=== PATIENT | female | born 1960 | race African-American/Black ===

== ENCOUNTER 2023-03-26 14:29 | Outpatient (OUT) | payer OTHER, SELFPAY ==
--- NOTE | 2023-03-26 14:38 | MM_ITS ---
Patient: ROBERT EPPS Exam Date: 03/26/2023 : 1960 Gender:F Ordering : DR Waldo Munroe . Admission #: [id number] Family : DR VIANEY MARSHALL Order #: [id number] CLICK HERE TO VIEW EXAM RADIOLOGY REPORT PROCEDURE: MM TOMOSYNTHESIS SCREENING BI COMPARISON: MG MAMM SCREEN 3D ELENA CAD, 01/24/2021. MG MAMM SCREEN 3D ELENA CAD, 01/30/2022. INDICATIONS: Screening Calculator Name NCI Breast Cancer Risk Assessment Tool 5 Year Breast Cancer Risk 1.50% Lifetime Breast Cancer Risk 6.70% Personal Breast Cancer No Personal Ovarian Cancer No Treatments None Family Cancers Grandmother-maternal with leukemia cancer at age 73. LOCATION: [facility] BREAST COMPOSITION: Heterogeneously dense,which may obscure small masses. FINDINGS: DIAGNOSTIC CATEGORY 2--BENIGN FINDING. NO CHANGE FROM COMPARISON. Scattered benign-appearing calcifications are present. Scattered benign-appearing lymph nodes are present. Scattered benign-appearing nodules are present. RIGHT BREAST: No significant suspicious finding. LEFT BREAST: No significant suspicious finding. Stable area of lobular focal asymmetry upper inner quadrant with scattered calcifications. 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 RECOMMENDATIONS: ROUTINE MAMMOGRAM AND CLINICAL EVALUATION IN 12 MONTHS. PLEASE NOTE: A NORMAL MAMMOGRAM DOES NOT EXCLUDE THE POSSIBILITY OF BREAST CANCER. A CLINICALLY SUSPICIOUS PALPABLE LUMP SHOULD BE BIOPSIED. Dictated by: Brent Vallecillo MD on 03/27/2023 at 08:16 Approved by: Brent Vallecillo MD on 03/27/2023 at 08:19
== END 2023-03-26 14:30 | disposition home or self-care (01) ==
LOC: MAMMO 14:33
PROVIDERS: PCP Family Medicine; Visit Provider Obstetrics & Gynecology
DX: Z12.31 Encounter for screening mammogram for malignant neoplasm of breast (principal); Z01.419 Encounter for gynecological examination (general) (routine) without abnormal findings; Z80.6 Family history of leukemia
CPT/HCPCS: 77063; 77067; 87624; G0145

== ENCOUNTER 2023-03-26 19:16 | Outpatient (REF) | payer OTHER, SELFPAY ==
[2023-03-31 16:11] LABS: Age Gdln ACOG Testing Note (.); HPV Aptima Negative (Negative); IGP, Aptima HPV, rfx 16/18,45 Note (.)
== END 2023-03-26 19:17 | disposition home or self-care (01) ==
LOC: LAB 19:16
PROVIDERS: PCP Family Medicine; Visit Provider Obstetrics & Gynecology
DX: Z01.419 Encounter for gynecological examination (general) (routine) without abnormal findings (principal)
CPT/HCPCS: 87624; G0145

== ENCOUNTER 2024-01-27 09:38 | Outpatient (OUT) | payer OTHER, SELFPAY ==
--- NOTE | 2024-01-27 09:46 | XR_ITS ---
[address] [address] Patient Name: ROBERT EPPS MRN: [id number] date: 1960 Sex: F Assigned Patient Location: [facility] Current Patient Location: [facility] Accession/Order Number: [id number] Exam Date: 01/27/2024 10:10 Report Date: 01/27/2024 12:19 At the request of: ADRIANA BARAJAS Procedure: XR DEXA axial skeleton EXAMINATION: XR DEXA axial skeleton HISTORY: Postmenopausal Status COMPARISON: No relevant comparison available. TECHNIQUE: Dual-energy X-ray absorptiometry (DXA) was performed. FINDINGS: SPINE ANALYSIS: Average bone mineral density is 1.005 g/cm2. T-score (standard deviation relative to young adult mean): -1.6 . HIP ANALYSIS: Lowest bone mineral density is within the right femoral neck, 0.790 g/cm2. T-score (standard deviation relative to young adult mean): -1.8 . XR/XR DEXA axial skeleton IMPRESSION: World Health Organization Classification: Osteopenia - Moderate Fracture Risk FRAX: Cannot calculate. Pharmacologic treatment recommendations * No uniform recommendation applies to all patients. Management plans must be individualized. * Consider initiating pharmacologic treatment in postmenopausal women and men >= 50 years of age who have the following: Primary fracture prevention: * T-score <= - 2.5 at the femoral neck, total hip, lumbar spine, 33% radius (some uncertainty with existing data) by DXA. * Low bone mass (osteopenia: T-score between - 1.0 and - 2.5) at the femoral neck or total hip by DXA with a 10-year hip fracture risk >= 3% or a 10-year major osteoporosis-related fracture risk >= 20% (i.e., clinical vertebral, hip, forearm, or proximal humerus) based on the [place]-adapted FRAXregistered model. Secondary fracture prevention: * Fracture of the hip or vertebra regardless of BMD [4, 5]. * Fracture of proximal humerus, pelvis, or distal forearm in persons with low bone mass (osteopenia: T-score between - 1.0 and - 2.5). The decision to treat should be individualized in persons with a fracture of the proximal humerus, pelvis, or distal forearm who do not have osteopenia or low BMD [12, 13]. Jaime MS, Katya SL, Chandler KL, Rohan EM, Axel KG, AJ, Antonino ES. The clinician's guide to prevention and treatment of osteoporosis. Osteoporos Int. 2021;33(10):9088-3882. doi: 10.1007/z08317-850-42322-t. Epub 2021Oct 03. Erratum in: Osteoporos Int. 2021Jan 02;: PMID: [id number]; PMCID: [id number]. Electronically authenticated by: LUDA MARQUEZ Date: 01/27/2024 12:19
--- OUTSIDE RECORDS SUMMARY | 2024-01-27 10:04 | XMS_ITS | CCD ---
Author Organization [facility] Care Team Providers Care Brand Director Name Role Phone DR VIANEY MARSHALL Primary Care Unavailable DR RAS SCHROEDER Consulting Unavailable JENN, DR WRIGHT Attending Unavailable DR ADRIANA BARAJAS Admitting Unavailable DR VIANEY MARSHALL Consulting Unavailable MD Debbi Kaur Primary Care Provider FARA Wills Attending Provider Marcela Wills Attending Unavailable Marcela Wills Admitting Unavailable Debbi Kaur Primary Care Unavailable VIANEY MARSHALL Referring Unavailable VIANEY MARSHALL Primary Care Unavailable VIANEY MARSHALL Referring Unavailable VIANEY MARSHALL Primary Care Unavailable Problems Problem Classification Problem Date Documented Da te Episodic/Chronic Other nutritional; endocrine; and metabolic disorders (1 source) Abnormal weight loss; Translations: [Abnormal weight loss] Onset: 01-12-2024 Episodic Other screening for suspected conditions (not mental disorders or infectious disease) (4 sources) Encounter for screening mammogram for malignant neoplasm of breast; Translations: [ENC SCR MAMMO MALIG NEOPLASM BREAST] Onset: 01-30-2022 Episodic Other skin disorders (1 source) Nonscarring hair loss, unspecified; Translations: [Nonscarring hair loss, unspecified] Onset: 01-12-2024 Episodic Residual codes; unclassified (1 source) Family history of leukemia; Translations: [FAMILY HISTORY OF LEUKEMIA] Onset: 01-31-2022 Episodic Thyroid disorders (1 source) Iodine-deficiency related diffuse (endemic) goiter; Translations: [Iodine-deficiency related diffuse (endemic) goiter] Onset: 01-12-2024 Chronic Unclassified (1 source) Pain in right knee; Translations: [Pain in right knee] Onset: 01-09-2023 Results Test Name Value Interpretation Reference Range Facil ity US THYROIDon 01-14-2024 US THYROID US THYROID US THYROID: 01/13/2024 PROVIDED HISTORY: * 63 years old Female * Iodine-deficiency related diffuse (endemic) goiter COMPARISON: Ultrasound soft tissue head and neck 07/03/2014 TECHNIQUE: Real time sonographic evaluation of the thyroid gland performed. FINDINGS: Thyroid size: Normal Right thyroid lobe measures: 5.7 x 2.6 x 2.8 cm Left thyroid lobe measures: 5.8 x 2.1 x 1.8 cm Isthmus measures: 0.8 cm Overall thyroid texture: Heterogenous TR3 nodule in the mid right thyroid lobe measuring up to 1.7 cm. TR4 nodule in the inferior right thyroid lobe measuring up to 2.9 cm. Scattered additional subcentimeter thyroid nodules, favoring benign etiology, and requiring no further imaging follow-up per ACR TI-RADS criteria. IMPRESSION: 1. TR4 nodule in the right thyroid lobe measuring up to 2.9 cm, for which FNA is recommended. 2. TR3 nodule in the right thyroid lobe measuring up to 1.7 cm, for which one-year sonographic follow-up is recommended. 3. Nonspecific heterogeneity of the thyroid gland. Correlation with serology and patient history, may be of diagnostic value. ACR TI-RADS recommendations: * TR5 (greater than or equal to 7 points): FNA if greater than or equal to 1cm, follow-up if 0.5 - 0.9 cm every year for 5 years * TR4 (4-6 points): FNA if greater than or equal to 1.5cm, follow-up if 1 - 1.4 cm in 1, 2, 3 and 5 years * TR3 (3 points): FNA if greater than or equal to 2.5cm, follow-up if 1.5 - 2.4 cm in 1, 3 and 5 years * TR2 (2 points) & TR1 (0 points): No FNA or imaging follow-up Ventura FN, Analilia WD, Colin EG, et al. ACR Thyroid Imaging, Reporting and Data System (TI-RADS): White Paper of the ACR TI-RADS Committee. J Am Nolan Radiol 2017;14:587-595. Finalized by Josey Sánchez MD on 01/14/2024 10:59 PM Normal [facility] CBC AND AUTO DIFFon 01-12-20 24 ABSOLUTE BASOPHIL 0.0 X10E9/L Normal 0.0-0.2 [facility] Comment on above: Performed By: #### C BCA, CMP, 64724-5, THYR #### [facility] ([id number]) [address], [address] [place] [address] ABSOLUTE NEUTROPHIL 5.0 X10E9/L Normal 1.5-6.6 [facility] Comment on above: Performed By: #### C HERNANDEZ, CMP, 58546-6, THYR #### [facility] ([id number]) [address], [address] [place] [address] Basophils/100 WBC (Bld) 0.5 % Normal [facility] Comment on above: Performed By: #### Matthias BCA, CMP, 07851-6, THYR #### [facility] ([id number]) [address], [address] [place] [address] Eosinophils (Bld) [#/Vol] 0.1 10*3/uL Normal 0.0-0.4 [facility] Comment on above: Performed By: #### Matthias BCA, CMP, 29122-7, THYR #### [facility] ([id number]) [address], [address] [place] [address] Eosinophils/100 WBC (Bld) 1.0 % Normal [facility] Comment on above: Performed By: #### C BCA, CMP, 51775-9, THYR #### [facility] ([id number]) [address], [address] [place] [address] Erythrocyte distribution width (RBC) [Ratio] 15.1 % High 11.5-15.0 [facility] Comment on above: Performed By: #### Matthias BCA, CMP, 62881-8, THYR #### [facility] ([id number]) [address], [address] [place] [address] Hematocrit (Bld) [Volume fraction] 42.3 % Normal 35-47 [facility] Comment on above: Performed By: #### C BCA, CMP, 62218-5, THYR #### [facility] ([id number]) [address], [facility] [address] [place] [address] Hemoglobin (Bld) [Mass/Vol] 13.8 g/dL Normal 11.7-15.5 [facility] Comment on above: Performed By: #### C BCA, CMP, 24449-1, THYR #### [facility] ([id number]) [address], [facility] [address] [place] [address] Lymphocytes (Bld) [#/Vol] 2.1 10*3/uL Normal 1.0-3.5 [facility] Comment on above: Performed By: #### C BCA, CMP, 53430-9, THYR #### [facility] ([id number]) [address], [facility] [address] [place] [address] Lymphocytes/100 WBC (Bld) 27.6 % Normal [facility] Comment on above: Performed By: #### C BCA, CMP, 10641-3, THYR #### [facility] ([id number]) [address], [facility] [address] [place] [address] MCH (RBC) [Entitic mass] 26.1 pg Low 27-34 [facility] Comment on above: Performed By: #### C BCA, CMP, 98574-0, THYR #### [facility] ([id number]) [address], [address] [place] [address] MCHC (RBC) [Mass/Vol] 32.6 g/dL Normal 32-36 [facility] Comment on above: Performed By: #### C BCA, CMP, 57327-3, THYR #### [facility] ([id number]) [address], [address] [place] [address] MCV (RBC) [Entitic vol] 80 fL Normal 80-100 [facility] Comment on above: Performed By: #### C BCA, CMP, 71051-9, THYR #### [facility] ([id number]) [address], [address] [place] [address] Monocytes (Bld) [#/Vol] 0.4 10*3/uL Normal 0-0.9 [facility] Comment on above: Performed By: #### C HERNANDEZ, CMP, 97993-6, THYR #### [facility] ([id number]) [address], [address] [place] [address] Monocytes/100 WBC (Bld) 5.3 % Normal [facility] Comment on above: Performed By: #### Matthias BCA, CMP, 18262-9, THYR #### [facility] ([id number]) [address], [address] [place] [address] Neutrophils/100 WBC (Bld) 65.6 % Normal [facility] Comment on above: Performed By: #### Matthias BCA, CMP, 77199-6, THYR #### [facility] ([id number]) [address], [address] [place] [address] Platelet mean volume (Bld) [Entitic vol] 9.9 fL Normal 7-12 [facility] Comment on above: Performed By: #### C BCA, CMP, 62872-3, THYR #### [facility] ([id number]) [address], [address] [place] [address] Platelets (Bld) [#/Vol] 232 10*3/uL Normal 150-450 [facility] Comment on above: Performed By: #### C BCA, CMP, 29092-3, THYR #### [facility] ([id number]) [address], [address] [place] [address] RBC COUNT 5.28 X10E12/L High 3.80-5.20 [facility] Comment on above: Performed By: #### C BCA, CMP, 47216-3, THYR #### [facility] ([id number]) [address], [address] [place] [address] WBC (Bld) [#/Vol] 7.5 10*3/uL Normal 4.0-11.0 [facility] Comment on above: Performed By: #### C BCA, CMP, 49602-4, THYR #### [facility] ([id number]) [address], [address] [place] [address] COMPREHENSIVE METABOLIC PANE Gal 01-12-2024 Albumin [Mass/Vol] 4.6 g/dL Normal 3.2-5.3 [facility] Comment on above: Performed By: #### C BCA, CMP, 07648-5, THYR #### [facility] ([id number]) [address], [address] [place] [address] ALP [Catalytic activity/Vol] 97 U/L Normal 39-130 [facility] Comment on above: Performed By: #### C BCA, CMP, 75151-2, THYR #### [facility] ([id number]) [address], [address] [place] [address] ALT [Catalytic activity/Vol] 17 U/L Normal 0-31 [facility] Comment on above: Performed By: #### C BCA, CMP, 16517-2, THYR #### [facility] ([id number]) [address], [address] [place] [address] Anion gap [Moles/Vol] 11 mmol/L Normal 5-15 [facility] Comment on above: Performed By: #### C BCA, CMP, 63368-4, THYR #### [facility] ([id number]) [address], [address] [place] [address] AST [Catalytic activity/Vol] 18 U/L Normal 0-41 [facility] Comment on above: Performed By: #### C BCA, CMP, 61297-7, THYR #### [facility] ([id number]) [address], [address] [place] [address] Bilirubin [Mass/Vol] 0.8 mg/dL Normal 0.3-1.2 [facility] Comment on above: Performed By: #### C BCA, CMP, 21854-0, THYR #### [facility] ([id number]) [address], [address] [place] [address] Calcium [Mass/Vol] 10.0 mg/dL Normal 8.5-10.5 [facility] Comment on above: Performed By: #### C BCA, CMP, 14773-8, THYR #### [facility] ([id number]) [address], [address] [place] [address] Chloride [Moles/Vol] 105 mmol/L Normal 98-109 [facility] Comment on above: Performed By: #### C BCA, CMP, 30979-3, THYR #### [facility] ([id number]) [address], [address] [place] [address] CO2 [Moles/Vol] 25 mmol/L Normal 22-32 [facility] Comment on above: Performed By: #### C BCA, CMP, 53584-1, THYR #### [facility] ([id number]) [address], [address] [place] [address] Creatinine [Mass/Vol] 0.96 mg/dL Normal 0.40-1.00 [facility] Comment on above: Result Comment: METH OD TRACEABLE TO IDMS STANDARD Performed By: #### C BCA, CMP, 54547-1, THYR #### [facility] ([id number]) [address], [address] [place] [address] GFR/1.73 sq M.predicted among non-blacks MDRD (S/P/Bld) [Vol rate/Area] 67 mL/min/{1.73_m2} Normal >59 [facility] Comment on above: Result Comment: Reported eGFR is based on the CKD-EPI 2020 equation that does not use a race coefficient. Performed By: #### C ROCIO NG, 04104-6, THYR #### [facility] ([id number]) [address], [address] [place] [address] Glucose [Mass/Vol] 85 mg/dL Normal 65-99 [facility] Comment on above: Performed By: #### C ROCIO NG, 02265-5, THYR #### [facility] ([id number]) [address] [address] [place] [address] Potassium [Moles/Vol] 4.0 mmol/L Normal 3.5-5.0 [facility] Comment on above: Performed By: #### C ROCIO NG, 27056-2, THYR #### [facility] ([id number]) [address], [address] [place] [address] Protein [Mass/Vol] 7.2 g/dL Normal 6.0-8.0 [facility] Comment on above: Performed By: #### C ROCIO NG, 17306-5, THYR #### [facility] ([id number]) [address], [address] [place] [address] Sodium [Moles/Vol] 141 mmol/L Normal 134-146 [facility] Comment on above: Performed By: #### C ROCIO NG, 63634-1, THYR #### [facility] ([id number]) [address], [address] [place] [address] Urea nitrogen [Mass/Vol] 17 mg/dL Normal 5-27 [facility] Comment on above: Performed By: #### Matthias NG, ROCIO, 68062-1, THYR #### [facility] ([id number]) [address], [address] [place] [address] Lipid 1996 panelon 4 Cholesterol [Mass/Vol] 257 mg/dL High 150-200 [facility] Comment on above: Performed By: #### Matthias NG, CMP, 83254-8, THYR #### [facility] ([id number]) [address], [address] [place] [address] Cholesterol in HDL [Mass/Vol] 64 mg/dL Normal >39 [facility] Comment on above: Result Comment: HDL <40 mg/dL - High Risk HDL > or = 40mg/dL- Desirable HDL >60 mg/dL - Negative Risk Performed By: #### Matthias NG, ROCIO, 94175-3, THYR #### [facility] ([id number]) [address], [address] [place] [address] Cholesterol in LDL [Mass/Vol] 169 mg/dL High <130 [facility] Comment on above: Result Comment: LDL <100 mg/dL - Desirable LDL >160 mg/dL - High Risk Performed By: #### Matthias NG, CMP, 85724-8, THYR #### [facility] ([id number]) [address], [address] [place] [address] Cholesterol in VLDL [Mass/Vol] 24 mg/dL Normal 0-30 [facility] Comment on above: Performed By: #### Matthias NG, CMP, 12774-5, THYR #### [facility] ([id number]) [address], [address] [place] [address] CHOLESTEROL:HDL 4.0 Normal 1.0-5.0 [facility] Comment on above: Performed By: #### C HERNANDEZ, CMP, 09129-4, THYR #### [facility] ([id number]) [address], [address] [place] [address] Triglyceride [Mass/Vol] 118 mg/dL Normal 27-150 [facility] Comment on above: Performed By: #### C HERNANDEZ, CMP, 62876-7, THYR #### [facility] ([id number]) [address], [address] [place] [address] THYROID PROFILEon 01-12-2024 Free T4 [Mass/Vol] 0.79 ng/dL Normal 0.61-1.60 [facility] Comment on above: Performed By: #### C HERNANDEZ, CMP, 61305-1, THYR #### [facility] ([id number]) [address], [address] [place] [address] TSH 0.87 uIU/mL Normal 0.49-4.67 [facility] Comment on above: Performed By: #### C BCA, CMP, 06174-2, THYR #### [facility] ([id number]) [address], [address] [place] [address] XR knee RT 4V*on 01-09-2023 XR knee RT 4V* [facility] Main [address] [address] XRay Report Signed Patient: Robert Epps MR#: [id number] : 1960 Acct:[id number] Age/Sex: 62 / F ADM Date: 01/09/23 Loc: XDUC Room: Type: [facility] Attending Dr: Marcela CHAUDHARI Copies to: FARA Montero Ordering Provider: FARA Montero Date of Service: 01/09/23 XR/XR knee RT 4V*: RIGHT KNEE PAIN 4 views right knee plain film COMPARISON: None HISTORY: Right knee pain 1 month ago. ACUTE FINDINGS: None DEGENERATIVE CHANGE: Unremarkable SOFT TISSUE FINDINGS: Unremarkable JOINT EFFUSION: None POSTOP CHANGES: None BONE MINERALIZATION: Adequate XR/XR knee RT 4V* IMPRESSION: No acute findings Impression dictated by: Tyler Pugh M.D.01/09/2023 4:56 PM Dictation Location: [place] [address] Transcribed By: [facility] 01/09/231655 Dictated By: Tyler Pugh DO 01/09/231654 Signed By: 01/09/231655 [facility] MG MAMM SCREEN 3D ELENA CADon 01-30-2022 MG MAMM SCREEN 3D ELENA CAD Patient: ROBERT EPPS Exam Date: 01/30/2022 : 1960 Gender:F Ordering : DR VIANEY MARSHALL Admission #: [id number] Family : DR ADRIANA BARAJAS . Order #: [id number] CLICK HERE TO VIEW EXAM RADIOLOGY REPORT PROCEDURE: MAMMOGRAM SCREENING 3D BILATERAL CAD COMPARISON: MG MAMM SCREEN ELENA W CAD, 01/04/2020. MG MAMM SCREEN ELENA W CAD, 12/21/2018. DIGITIZED_MAMMO, 12/30/2008. MG MAMM SCREEN 3D ELENA CAD, 01/24/2021. INDICATIONS: Screening mammography Calculator Name NCI Breast Cancer Risk Assessment Tool 5 Year Breast Cancer Risk 1.40% Lifetime Breast Cancer Risk 6.90% Personal Breast Cancer No Personal Ovarian Cancer No Treatments None Family Cancers Grandmother-maternal with leukemia cancer at age 73. LOCATION: [facility] BREAST COMPOSITION: Heterogeneously dense,which may obscure small masses. FINDINGS: DIAGNOSTIC CATEGORY 2--BENIGN FINDING: RIGHT BREAST: No significant suspicious finding. Scattered benign-appearing nodules are present. No significant change has occurred. LEFT BREAST: No significant suspicious finding. Scattered benign-appearing nodules are present. Scattered benign-appearing calcifications are present. No significant change has occurred. RECOMMENDATIONS: ROUTINE MAMMOGRAM AND CLINICAL EVALUATION IN 12 MONTHS. PLEASE NOTE: A NORMAL MAMMOGRAM DOES NOT EXCLUDE THE POSSIBILITY OF BREAST CANCER. A CLINICALLY SUSPICIOUS PALPABLE LUMP SHOULD BE BIOPSIED. Dictated by: Ras Schroeder M.D. on 01/31/2022 at 13:51 Approved by: Ras Schroeder M.D. on 01/31/2022 at 13:59 Normal [facility] Encounters Encounter Date Encounter Type Care Provider Facility Start: 01-13-2024 End: 01-13-2024 ambulatory VIANEY A. [facility] Start: 01-12-2024 End: 01-12-2024 ambulatory VIANEY A. [facility] Start: 01-12-2024 Encounter for genera l adult medical examination without abnormal findings [facility] Start: 01-09-2023 End: 01-09-2023 ambulatory Marcela Elma Facility:[facility] Start: 01-09-2023 End: 01-09-2023 ambulatory MD Debbi Kaur Work Phone: [facility] Work Phone: Start: 01-09-2023 End: 01-09-2023 Patient encounter procedure MD Debbi Kaur Work Phone: [facility] Work Phone: Start: 01-30-2022 End: 01-31-[address] VIANEY MARSHALL Facility:[facility] Procedures Date Procedure Procedure Detail Performing Clinician Start: 01-09-2023 X-ray of right knee MD Debbi Kaur Work Phone: Payers Date Payer Category Payer Self-pay 2022 Unknown [id number] 1960 Unknown [id number] [id number] [id number] 1960 Unknown [id number] 2.16.8 [id number] 1960 Unknown [id number] 2.16.8 [id number] 1958 Unknown [id number] Unknown [id number] 2.16.8 [id number] Social History Date Type Detail Facility Tobacco smoking stat us IDIS Unknown if ever smoked [facility] Work Phone: Start: 1960 Sex Assigned At Female F [facility] Evaluation note Note Date & Type Note Facility Evaluation note No assessment information availa ble [facility] Work Phone: Summary Purpose Family History No Family History Records FoundNo Family History Records FoundNo Family History Records Found Advance Directives No Advanced Directives Records FoundNo Advanced Directives Records FoundNo Advanced Directives Records Found Additional Source Comments INFORMATION SOURCE (unrecogn ized section and content) DATE CREATED AUTHOR 02/01/2022 [facility] DATE CREATED AUTHOR AUTHOR'S ORGANIZ ATION 01/21/2023 [facility] DATE CREATED AUTHOR AUTHOR'S ORGANIZ ATION 01/17/2024 [facility] Care Teams (unrecognized sec tion and content) Team Status: Active Member Role Status Dates Debbi Kaur MD Primary Care Provider Active Team Status: Inactive Member Role Status Dates Debbi Kaur MD Primary Care Provider Active FARA Amin Attending Provider Active Goals (unrecognized section and content) Goals may be documented in a n alternate section FOR RECORDS PERTAINING TO PATIENTS WHO ARE OR HAVE BEEN ENROLLED IN A CHEMICAL DEPENDENCY/SUBSTANCEABUSE PROGRAM, SOME INFORMATION MAY BE OMITTED. This clinical summary was aggregated from multiple sources. Caution should be exercised in using it in the provision of clinical care. This summary normalizes information from multiple sources, and as a consequence, information in this document may materially change the coding, format and clinical context of patient data. In addition, data may be omitted in some cases. CLINICAL DECISIONS SHOULD BE BASED ON THE PRIMARY CLINICAL RECORDS. [employer] provides no warranty or guarantee of the accuracy or completeness of information in this document.
== END 2024-01-27 09:39 | disposition home or self-care (01) ==
LOC: RAD 09:39
PROVIDERS: PCP Family Medicine; Visit Provider Obstetrics & Gynecology
DX: M85.80 Other specified disorders of bone density and structure, unspecified site (principal); Z78.0 Asymptomatic menopausal state
CPT/HCPCS: 77080

== ENCOUNTER 2024-04-04 21:01 | Outpatient (REF) | payer OTHER, SELFPAY ==
--- OUTSIDE RECORDS SUMMARY | 2024-04-04 21:05 | XMS_ITS | CCD ---
Author Organization [facility] Inform ion Partnership [facility] Care Team Providers Care Management Supervisor Name Role Phone DR VIANEY MCCLENDON Primary Care Unavailable ALMA, DR RAS Loyd Consulting Unavailable LUDWIG, DR WRIGHT Attending Unavailable LUDWIG, DR WRIGHT Admitting Unavailable DR VIANEY MCCLENDON Consulting Unavailable MD Debbi Kaur Primary Care Provider FARA Wills Attending Provider [phone] Marcela Wills Attending Unavailable Marcela Wills Admitting Unavailable Debbi Kaur Primary Care Unavailable VIANEY MCCLENDON Referring Unavailable VIANEY MCCLENDON Primary Care Unavailable VIANEY MCCLENDON Referring Unavailable VIANEY MCCLENDON Primary Care Unavailable Vianye Mcclendon MD Primary Care Provider Cecily Peterson MD Unavailable [phone] Supa Cox DO Unavailable [phone] SUPA COX Attending Unavailable CECILY PETERSON Referring Unavailable VIANEY MCCLENDON Referring Unavailable VIANEY MCCLENDON Primary Care Unavailable Medications Current Medications Medication Drug Class(es) Dates Sig (Normalized) Sig (Original) amLODIPine 10 mg oral tablet (4 sources) Dihydropyridine Calcium Channel Shanna Start: 11-20-2022 take 1 tablet by mouth in the morning amLODIPine (Norvasc) 10 MG tablet Take 10 mg by mouth in the morning. 11/20/2022 Active Problems Active Problems Problem Classification Problem Date Documented Da te Episodic/Chronic Anxiety disorders (4 sources) Anxiety; Translations: [Anxiety disorder, unspecified] Onset: 01-14-2023 01-14-2023 Chronic Essential hypertension (4 sources) Essential hypertension; Translations: [Essential (primary) hypertension] Onset: 01-14-2023 01-14-2023 Chronic Osteoarthritis (4 sources) Arthritis of right foot; Translations: [Primary osteoarthritis, right ankle and foot] Onset: 01-14-2023 01-14-2023 Chronic Other nutritional; endocrine; and metabolic disorders (1 [...] [FAMILY HISTORY OF LEUKEMIA] Onset: 01-31-2022 Episodic Residual codes; unclassified (1 source) Pain, unspecified; Translations: [Pain, unspecified] Onset: 03-31-2024 Episodic Thyroid disorders (3 sources) Iodine-deficiency related diffuse (endemic) goiter; Translations: [Multinodular goiter] Onset: 01-12-2024 03-23-2024 Chronic Unclassified (1 source) Pain in right knee; Translations: [Pain in right knee] Onset: 01-09-2023 Past or Other Problems Problem Classification Problem Date Documented Da te Episodic/Chronic Spondylosis; intervertebral disc disorders; other back problems (4 sources) Disorder of left sciatic nerve; Translations: [Sciatica, left side] Onset: 01-14-2023 01-14-2023 Episodic Results Test Name Value Interpretation Reference Range [...] Sánchez MD on 01/14/2024 10:59 PM Normal [facility] CBC AND AUTO DIFFon 01-12-20 24 ABSOLUTE BASOPHIL 0.0 X10E9/L Normal 0.0-0.2 [facility] Comment on above: Performed By: #### C BCA, CMP, 61327-4, THYR #### [facility] ([id number]) [address] [place] [address] ABSOLUTE NEUTROPHIL 5.0 X10E9/L Normal 1.5-6.6 [facility] Comment on above: Performed By: #### C ROCIO NG, 50853-2, THYR #### [facility] ([id number]) [address], [address] [place] [address] Basophils/100 WBC (Bld) 0.5 % Normal [facility] Comment on above: Performed By: #### C HERNANDEZ CMP, 59682-1, THYR #### [facility] ([id number]) [address] [address] [place] [address] Eosinophils (Bld) [#/Vol] 0.1 10*3/uL Normal 0.0-0.4 [facility] Comment on above: Performed By: #### C HERNANDEZ CMP, 72765-0, THYR #### [facility] ([id number]) [address] [facility] [address] [place] [address] Eosinophils/100 WBC (Bld) 1.0 % Normal [facility] Comment on above: Performed By: #### C ROCIO NG, 74392-0, THYR #### [facility] ([id number]) [address] [facility] [address] [place] [address] Erythrocyte distribution width (RBC) [Ratio] 15.1 % High 11.5-15.0 [facility] Comment on above: Performed By: #### C ROCIO NG, 98520-1, THYR #### [facility] ([id number]) [address] [address] [place] [address] Hematocrit (Bld) [Volume fraction] 42.3 % Normal 35-47 [facility] Comment on above: Performed By: #### C HERNANDEZ, CMP, 92331-4, THYR #### [facility] ([id number]) [address] [address] [place] [address] Hemoglobin (Bld) [Mass/Vol] 13.8 g/dL Normal 11.7-15.5 [facility] Comment on above: Performed By: #### C ROCIO NG, 10556-3, THYR #### [facility] ([id number]) [address], [address] [place] [address] Lymphocytes (Bld) [#/Vol] 2.1 10*3/uL Normal 1.0-3.5 [facility] Comment on above: Performed By: #### C ROCIO NG, 70707-1, THYR #### [facility] ([id number]) [address] [facility] [address] [place] [address] Lymphocytes/100 WBC (Bld) 27.6 % Normal [facility] Comment on above: Performed By: #### Matthias NG CMP, 17317-5, THYR #### [facility] ([id number]) [address] [place] [address] MCH (RBC) [Entitic mass] 26.1 pg Low 27-34 [facility] Comment on above: Performed By: #### C ROCIO NG, 30305-5, THYR #### [facility] ([id number]) [address] [place] [address] MCHC (RBC) [Mass/Vol] 32.6 g/dL Normal 32-36 [facility] Comment on above: Performed By: #### Matthias NG CMP, 49076-0, THYR #### [facility] ([id number]) [address], [address] [place] [address] MCV (RBC) [Entitic vol] 80 fL Normal 80-100 [facility] Comment on above: Performed By: #### Matthias NG CMP, 55246-7, THYR #### [facility] ([id number]) [address], [address] [place] [address] Monocytes (Bld) [#/Vol] 0.4 10*3/uL Normal 0-0.9 [facility] Comment on above: Performed By: #### C HERNANDEZ CMP, 70448-9, THYR #### [facility] ([id number]) [address], [address] [place] [address] Monocytes/100 WBC (Bld) 5.3 % Normal [facility] Comment on above: Performed By: #### Matthias NG CMP, 02920-3, THYR #### [facility] ([id number]) [address] [place] [address] Neutrophils/100 WBC (Bld) 65.6 % Normal [facility] Comment on above: Performed By: #### C HERNANDEZ CMP, 96408-1, THYR #### [facility] ([id number]) [address] [place] [address] Platelet mean volume (Bld) [Entitic vol] 9.9 fL Normal 7-12 [facility] Comment on above: Performed By: #### Matthias NG CMP, 51662-6, THYR #### [facility] ([id number]) [address], [address] [place] [address] Platelets (Bld) [#/Vol] 232 10*3/uL Normal 150-450 [facility] Comment on above: Performed By: #### Matthias NG CMP, 47773-4, THYR #### [facility] ([id number]) [address], [address] [place] [address] RBC COUNT 5.28 X10E12/L High 3.80-5.20 [facility] Comment on above: Performed By: #### Matthias NG, CMP, 94778-3, THYR #### [facility] ([id number]) [address], [address] [place] [address] WBC (Bld) [#/Vol] 7.5 10*3/uL Normal 4.0-11.0 [facility] Comment on above: Performed By: #### C BCA, CMP, 12174-8, THYR #### [facility] ([id number]) [address], [address] [place] [address] COMPREHENSIVE METABOLIC PANE Gal 01-12-2024 Albumin [Mass/Vol] 4.6 g/dL Normal 3.2-5.3 [facility] Comment on above: Performed By: #### C BCA, CMP, 33004-2, THYR #### [facility] ([id number]) [address], [address] [place] [address] ALP [Catalytic activity/Vol] 97 U/L Normal 39-130 [facility] Comment on above: Performed By: #### C BCA, CMP, 64210-7, THYR #### [facility] ([id number]) [address], [address] [place] [address] ALT [Catalytic activity/Vol] 17 U/L Normal 0-31 [facility] Comment on above: Performed By: #### C BCA, CMP, 02614-0, THYR #### [facility] ([id number]) [address], [address] [place] [address] Anion gap [Moles/Vol] 11 mmol/L Normal 5-15 [facility] Comment on above: Performed By: #### C BCA, CMP, 62802-2, THYR #### [facility] ([id number]) [address], [address] [place] [address] AST [Catalytic activity/Vol] 18 U/L Normal 0-41 [facility] Comment on above: Performed By: #### C BCA, CMP, 16098-7, THYR #### [facility] ([id number]) [address], [address] [place] [address] Bilirubin [Mass/Vol] 0.8 mg/dL Normal 0.3-1.2 [facility] Comment on above: Performed By: #### C BCA CMP, 21424-8, THYR #### [facility] ([id number]) [address], [address] [place] [address] Calcium [Mass/Vol] 10.0 mg/dL Normal 8.5-10.5 [facility] Comment on above: Performed By: #### C BCA, CMP, 84685-0, THYR #### [facility] ([id number]) [address], [address] [place] [address] Chloride [Moles/Vol] 105 mmol/L Normal 98-109 [facility] Comment on above: Performed By: #### C HERNANDEZ CMP, 93783-2, THYR #### [facility] ([id number]) [address], [address] [place] [address] CO2 [Moles/Vol] 25 mmol/L Normal 22-32 [facility] Comment on above: Performed By: #### C BCA, CMP, 58601-3, THYR #### [facility] ([id number]) [address], [address] [place] [address] Creatinine [Mass/Vol] 0.96 mg/dL Normal 0.40-1.00 [facility] Comment on above: Result Comment: METH OD TRACEABLE TO IDMS STANDARD Performed By: #### C BCA, CMP, 56837-1, THYR #### [facility] ([id number]) [address], [address] [place] [address] GFR/1.73 sq M.predicted among non-blacks MDRD (S/P/Bld) [Vol rate/Area] 67 mL/min/{1.73_m2} Normal >59 [facility] Comment on above: Result Comment: Reported eGFR is based on the CKD-EPI 2020 equation that does not use a race coefficient. Performed By: #### C BCA, CMP, 09507-8, THYR #### [facility] ([id number]) [address], [address] [place] [address] Glucose [Mass/Vol] 85 mg/dL Normal 65-99 [facility] Comment on above: Performed By: #### C BCA, CMP, 33460-0, THYR #### [facility] ([id number]) [address], [address] [place] [address] Potassium [Moles/Vol] 4.0 mmol/L Normal 3.5-5.0 [facility] Comment on above: Performed By: #### C BCA, CMP, 37598-9, THYR #### [facility] ([id number]) [address], [address] [place] [address] Protein [Mass/Vol] 7.2 g/dL Normal 6.0-8.0 [facility] Comment on above: Performed By: #### C BCA, CMP, 94679-9, THYR #### [facility] ([id number]) [address], [address] [place] [address] Sodium [Moles/Vol] 141 mmol/L Normal 134-146 [facility] Comment on above: Performed By: #### C BCA, CMP, 54223-7, THYR #### [facility] ([id number]) [address], [address] [place] [address] Urea nitrogen [Mass/Vol] 17 mg/dL Normal 5-27 [facility] Comment on above: Performed By: #### C BCA, CMP, 99272-9, THYR #### [facility] ([id number]) [address], [address] [place] [address] Lipid 1996 panelon 4 Cholesterol [Mass/Vol] 257 mg/dL High 150-200 [facility] Comment on above: Performed By: #### C BCA, CMP, 84405-0, THYR #### [facility] ([id number]) [address], [address] [place] [address] Cholesterol in HDL [Mass/Vol] 64 mg/dL Normal >39 [facility] Comment on above: Result Comment: HDL <40 mg/dL - High Risk HDL > or = 40mg/dL- Desirable HDL >60 mg/dL - Negative Risk Performed By: #### C HERNANDEZ, ROCIO, 01170-2, THYR #### [facility] ([id number]) [address], [address] [place] [address] Cholesterol in LDL [Mass/Vol] 169 mg/dL High <130 [facility] Comment on above: Result Comment: LDL <100 mg/dL - Desirable LDL >160 mg/dL - High Risk Performed By: #### Matthias NG CMP, 51475-6, THYR #### [facility] ([id number]) [address], [address] [place] [address] Cholesterol in VLDL [Mass/Vol] 24 mg/dL Normal 0-30 [facility] Comment on above: Performed By: #### Matthias NG, ROCIO, 21886-6, THYR #### [facility] ([id number]) [address], [address] [place] [address] CHOLESTEROL:HDL 4.0 Normal 1.0-5.0 [facility] Comment on above: Performed By: #### Matthias NG, CMP, 92424-3, THYR #### [facility] ([id number]) [address], [address] [place] [address] Triglyceride [Mass/Vol] 118 mg/dL Normal 27-150 [facility] Comment on above: Performed By: #### C BCA, CMP, 17306-0, THYR #### [facility] ([id number]) [address], [address] [place] [address] THYROID PROFILEon 01-12-2024 Free T4 [Mass/Vol] 0.79 ng/dL Normal 0.61-1.60 [facility] Comment on above: Performed By: #### C BCA, CMP, 42722-1, THYR #### [facility] ([id number]) [address], [address] [place] [address] TSH 0.87 uIU/mL Normal 0.49-4.67 [facility] Comment on above: Performed By: #### C BCA, CMP, 98331-4, THYR #### [facility] ([id number]) [address], [address] [place] [address] XR knee RT 4V*on 01-09-2023 XR knee RT 4V* [facility] Main [place] [address] [place] [address] XRay Report Signed Patient: Robert Epps MR#: [id number] : 1960 Acct:[id number] Age/Sex: 62 / F ADM Date: 01/09/23 [facility]: Type: [facility] Attending Dr: Marcela CHAUDHARI Copies to: FARA [...] Tyler Pugh M.D.01/09/2023 4:56 PM Dictation Location: RADIO-PC-03 Transcribed By: TIAN 01/09/231655 Dictated By: Tyler Pugh DO 01/09/231654 Signed By: 01/09/231655 [facility] MG MAMM SCREEN 3D ELENA CADon 01-30-2022 MG MAMM SCREEN 3D ELENA CAD Patient: ROBERT EPPS Exam Date: 01/30/2022 : 1960 Gender:F Ordering : DR VIANEY MCCLENDON Admission #: [id number] Family : DR ADRIANA MUNROE . Order #: [id number] CLICK HERE TO VIEW EXAM RADIOLOGY REPORT PROCEDURE: MAMMOGRAM SCREENING 3D BILATERAL CAD COMPARISON: MG MAMM SCREEN ELEAN W CAD, 01/04/2020. MG MAMM SCREEN ELENA W CAD, 12/21/2018. DIGITIZED_MAMMO, 12/30/2008. MG MAMM SCREEN 3D ELENA CAD, 01/24/2021. INDICATIONS: Screening mammography Calculator Name NCI Breast Cancer Risk Assessment Tool 5 Year Breast Cancer Risk 1.40% Lifetime Breast Cancer Risk 6.90% Personal Breast Cancer No Personal Ovarian Cancer No Treatments None Family Cancers Grandmother-maternal with leukemia cancer at age 73. LOCATION: [facility] BREAST COMPOSITION: Heterogeneously dense,which may obscure [...] Schroeder M.D. on 01/31/2022 at 13:59 Normal [facility] Vital Signs Date Time Vital Sign Value Performing Clinician Alondra reeder 03-23-2024 15:08-0400 Body height 157.5 cm Supa Cox DO Work Phone: [facility] 03-23-2024 15:08-0400 Body mass index (BMI) [Ratio] 25.24 kg/m2 Spua Cox DO Work Phone: [facility] 03-23-2024 15:08-0400 Body weight 62.6 kg Supa Cox DO Work Phone: [facility] Encounters Encounter Date Encounter Type Care Provider Facility Start: 04-04-2024 End: 04-04-2024 Bamboo flowsheet Adriana Ludwig DO Work Phone: [facility] Start: 04-04-2024 End: 04-04-2024 Bamboo flowsheet Adriana Ludwig DO Work Phone: [facility] Start: 03-31-2024 ambulatory [facility] Start: 03-23-2024 End: 03-23-2024 ambulatory SUPA COX Not Available Start: 03-23-2024 End: 03-23-2024 Office outpatient new 45 minutes Supa Puente Heydidudley DO Work Phone: [facility] Comment on above: Multiple thyroid nod ules (CMS/HCC) (Primary Dx) Start: 03-23-2024 End: 03-23-2024 Bamboo flowsheet Supa Cox DO Work Phone: [facility] Start: 03-23-2024 End: 03-23-2024 Bamboo flowsheet Supa Cox DO Work Phone: [facility] Start: 01-13-2024 End: 01-13-2024 ambulatory [facility] Start: 01-12-2024 End: 01-12-2024 ambulatory [facility] Start: 01-12-2024 Encounter for genera l adult medical examination without abnormal findings [facility] Start: 01-09-2023 End: 01-09-2023 ambulatory Marcela Wills Facility:[facility] Start: 01-09-2023 End: 01-09-2023 ambulatory MD Debbi Kaur Work Phone: [facility] Work Phone: Start: 01-09-2023 End: 01-09-2023 Patient encounter procedure MD Debbi Kaur Work Phone: [facility] Work Phone: Start: 01-30-2022 End: 01-31-[address] VIANEY MCCLENDON Facility:[facility] Procedures Date Procedure Procedure Detail Performing Clinician Start: 03-27-2023 Mammography Supa peters DO Work Phone: Start: 03-26-2023 Microscopic observat ion [Identifier] in Cervix by Cyto stain Adriana Munroe DO Work Phone: Start: 01-09-2023 X-ray of right knee MD Debbi Kaur Work Phone: Plan of Treatment Date Care Activity Detail Author Start: 03-26-2028 Screening for malignant neoplasm of cervix [facility] Start: 08-18-2024 End: 08-18-2024 Patient encounter procedure 08/18/2024 10:40 AM EDT Office Visit [facility] [address] [place] [phone] Cecily Peterson MD [address] [place] [address] [facility] Start: 04-05-2024 End: 04-05-2024 Patient encounter procedure 04/05/2024 8:00 AM EDT Office Visit [facility] [place] [address] [place] [phone] Supa Cox DO [address] [place] [address] [facility] Start: 04-04-2024 End: 04-04-2024 Patient encounter procedure 04/04/2024 11:00 AM EDT Office Visit [facility] [address] [phone] Adriana Munroe, DO [address] [place] [address] [facility] Start: 03-27-2024 Screening for malignant neoplasm of breast Mammogram [facility] Start: 02-07-2024 Influenza vaccination Influenza Vaccine (#1) [facility] Start: 10-10-1991 Screening for malignant neoplasm of cervix [facility] Start: 1982 Screening for malignant neoplasm of cervix Pap Smear [facility] Start: 1960 Screening for malignant neoplasm of colon [facility] Immunizations Immunization Date Immunization Notes Care Provider [facility] 09-25-2020 Moderna SARS-CoV-2 Vaccination Supa Cox DO Work Phone: [facility] 08-23-2020 Moderna SARS-CoV-2 Vaccination Supa Cox DO Work Phone: [facility] Payers Date Payer Category Payer Private Health Insurance [employer] [id number] 2024 Unknown [id number] 2023 Self-pay 2022 Unknown [id number] 1960 Unknown [id number] 1960 Unknown [id number] 1286 1960 Unknown [id number] 1286 1960 Unknown [id number] 1259 1960 Unknown [id number] 1286 1960 Unknown [id number] [id number]. 1286 1959 Unknown [id number] Unknown [id number] 531 Social History Date Type Detail Facility Tobacco smoking stat [facility] Unknown if ever smoked [facility] Work Phone: Start: 1960 Sex Assigned At Female F [facility] Start: 01-14-2023 Tobacco smoking stat [facility] Never smoked tobacco [facility] Start: 01-14-2023 Tobacco use and exposure Smokeless tobacco non-user [facility] Start: 03-26-2023 End: 03-23-2024 Alcoholic beverage intake Current drinker of alcohol (finding) [facility] Start: 03-26-2023 End: 03-23-2024 History of Social function [facility] Start: 03-26-2023 End: 03-23-2024 Tobacco use panel [facility] Start: 01-28-2023 Alcohol Comment caffeine 1-2 c ups per day [facility] Start: 01-13-2023 Gender identity Identifies as female gender (finding) [facility] History of Present illness Narrative 03-23-2024 Supa Cox DO - 03/23/2024 3:00 PM EDT Note Date & Type Note Facility 03-23-2024 History of Presen t illness Narrative Subjective Patient ID: HPI Patient presents today referred by Dr. Peterson for consideration of biopsy of a 2.9 cm right thyroid nodule. Patient has a history of Kaley's thyroiditis. Ultrasound showed a 2.9 cm nodule in the right thyroid lobe. Review of Systems ROS The specialty specific review of systems is noncontributory except for that recorded in the intake questionnaire and /or described in the history of present illness. Objective ENT Physical Exam Physical Exam Constitutional: Appearance: Normal appearance. HENT: Head: Atraumatic. Ears: External ear shows no abnormality Bilateral ear canals are clear Tympanic membranes intact, no evidence of middle ear fluid or other pathology. Nose: External nose appears to be normal Nares patent. Septal deviation to the right No evidence of polyp, mass or pus bilaterally. Oral Cavity: No evidence of trismus Lips appear normal Dental good Tongue of normal size and configuration, floor of mouth mucosa clear. Buccal mucosa shows no evidence of ulceration, mass or other abnormality Hard palate soft palate mucosa intact with no evidence of mass, ulceration or other abnormality Uvula of normal size and configuration Oropharynx: Tonsils small Posterior pharyngeal wall normal Neck: No evidence of palpable abnormality Thyroid without evidence of thyromegaly or mass. No cervical lymphadenopathy present. Cardiovascular: Rate and Rhythm: Normal rate and regular rhythm. . Skin: General: Skin is warm and dry. Neurological: General: No focal deficit present. Mental Status: alert and oriented to person, place, and time. THYROID ULTRASOUND EXAMINATION Indication: Thyroid nodule After informed consent was obtained the patient was placed supine on the examining table. Patient was asked to extend the neck. Topical ultrasound jelly was used. The right lobe of the thyroid gland measures __ 5.4 cm in greatest dimension. There are multiple nodules however that they are 2 dominant nodules, 1 of the superior posterior aspect of the lobe measuring 1.57 cm in greatest dimension in the larger 1 inferiorly near the clavicle measuring 2.7 cm. Neither has internal vascularity microcalcification. The isthmus is unremarkable. The left lobe of the thyroid gland measures _ 5.1 cm greatest dimension. Heterogeneous parenchyma but no real identifiable nodular mass There is no adenopathy in the central compartment. There is no appreciable adenopathy in either lateral neck. Assessment/Plan Robert was seen today for thyroid nodule. Diagnoses and all orders for this visit: Multiple thyroid nodules (CMS/HCC) (Primary) Comments: I recommended FNA of both larger thyroid nodule in the right thyroid lobe. We will get that approved by insurance and perform the procedure sometime in the near future documented in this encounter [facility] Evaluation note Note Date & Type Note Facility Evaluation note No assessment information availa alicia [facility] Work Phone: Evaluation note Note Date & Type Note Facility Evaluation note Diagnosis Multiple thyroid nodules (CMS/HCC)- Primary Nontoxic multinodular goiter documented in this encounter [facility] Summary Purpose Family History No Family History Records FoundNo Family History Records FoundNo Family History Records FoundNo Family History Records FoundNo Family History Records Found Advance Directives No Advanced Directives Records FoundNo Advanced Directives Records FoundNo Advanced Directives Records FoundNo Advanced Directives Records FoundNo Advanced Directives Records Found Additional Source Comments INFORMATION SOURCE (unrecogn ized section and content) DATE CREATED AUTHOR 02/01/2022 [facility] DATE CREATED AUTHOR AUTHOR'S ORGANIZ ATION 01/21/2023 [facility] DATE CREATED AUTHOR AUTHOR'S ORGANIZ ATION 01/17/2024 [facility] DATE CREATED AUTHOR AUTHOR'S ORGANIZ ATION 03/26/2024 [facility] DATE CREATED AUTHOR AUTHOR'S ORGANIZ ATION 04/02/2024 [facility] Care Teams (unrecognized sec tion and content) Team Status: Active Member Role Status Dates Debbi Kaur MD Primary Care Provider Active Team Status: Inactive Member Role Status Dates Debbi Kaur MD Primary Care Provider Active Marcela Wills NP-C Attending Provider Active Management Supervisor Relationship Specialty Start Date End Date Vianey Mcclendon MD [address] [place] [address] PCP - General Family Medicine 01/14/23 Cecily Peterson MD [address] [place] [address] Referring Physician Endocrinology 03/23/24 Supa Cox DO [address] [place] [address] Otolaryngology 03/23/24 Management Supervisor Relationship Specialty Start Date End Date Vianey Mcclendon MD [address] [place] [phone] PCP - General Family Medicine 01/14/23 Cecily Peterson MD [address] [place] [address] Referring Physician Endocrinology 03/23/24 Supa Cox DO [address] [place] [address] Otolaryngology 03/23/24 Goals (unrecognized section and content) Goals may be documented in a n alternate section Reason for Visit (unrecogniz ed section and content) Reason Comments Thyroid Nodule New Patient : Thyroi d nodule FOR RECORDS PERTAINING TO PATIENTS WHO ARE [...] BE BASED ON THE PRIMARY CLINICAL RECORDS. [employer] provides no warranty or guarantee of the accuracy or completeness of information in this document.
== END 2024-04-04 21:02 | disposition home or self-care (01) ==
LOC: LAB 21:01
PROVIDERS: PCP Family Medicine; Visit Provider Obstetrics & Gynecology
DX: Z01.419 Encounter for gynecological examination (general) (routine) without abnormal findings (principal)
CPT/HCPCS: 87624; 88175